=== PATIENT | male | born 1980 | race Caucasian/White ===

== ENCOUNTER 2016-08-16 18:45 | Emergency (ER) | payer OTHER ==
[~2016-08-16] VITALS: Ht 180.3 cm; Wt 128.4 kg
[~2016-08-16 18:45] MED LIST: KLN1X PO; LMC/150 PO; OXYC1TAB3 PO
[2016-08-16 18:51] VITALS: TEMP 36.5; Ht 180.3 cm; Wt 128.4 kg
[2016-08-16] MEDS ORDERED: KETOROLAC TROMETHAMINE 30 MG/ML VIAL IV STA (19:47)
[2016-08-16] MEDS ORDERED: SODIUM CHLORIDE 0.9% 1000ML 1,000 ML IV STA (19:47)
[2016-08-16] MEDS ORDERED: ONDANSETRON INJ 2 MG/ML 2 ML VIAL IV STA (19:47)
[2016-08-16] MEDS ORDERED: SODIUM CHLORIDE 0.9% 1000ML 1,000 ML IV ONE (19:47)
--- NOTE | 2016-08-16 20:22 | EMERGENCY ROOM VISIT NOTE ---
History Report prepared by Sara: Cayla Lama Under the Supervision of: Dr. Konstantin Gonzalez M.D. First contact with patient: 19:38 Chief Complaint: ABDOMINAL PAIN Stated Complaint: STOMACH PROBLEMS Nursing Triage Summary: Patient states "something is really wrong with my stomach, I can't eat and when I do I can't keep it down, I have really bad diarrhea" Symptoms are intermittent and has occured for a couple months. Mid abd pain. Associated acid reflux History of Present Illness The patient is a 35 year old male who presents to the Emergency Room with complaints of persistent nausea and vomiting starting a few days ago. He has had 4 vomiting episodes today. He also reports generalized abdominal pain and diarrhea. He has had a loss of appetite. He reports similar symptoms in the past but notes that the severity of his symptoms today is worse than normal. He also complains of a headache which was relieved with Aleve. He denies any recent ill contacts, changes in medications, unusual foods, or travels. The patient denies any fevers, urinary symptoms or any other complaints. He denies any history of abdominal surgeries. Source of History: patient Onset: a few days ago Position: other (global) Quality: other (nausea and vomiting) Timing: other (persistent) Associated Symptoms: + abdominal pain, + diarrhea, + vomiting, No fevers Review of Systems See HPI for pertinent positives & negatives. A total of 10 systems reviewed and were otherwise negative. Past Medical & Surgical Medical Problems: (1) Anxiety State Nos (2) Attn Deficit W Hyperact (3) Bipolar Disorder, Unspecified (4) Calculus Of Ureter (5) Cannabis Abuse-Unspec (6) Cocaine abuse, unspecified (7) Depressive Disorder Nec (8) Opioid Abuse-Unspec (9) Suicidal Ideation (10) Tobacco Use Disorder Old medical records were reviewed. Nurse's notes were reviewed and I agree with. Family History No pertinent family history Social History Smoking Status: Current Every Day Smoker Alcohol Use: none Drug Use: none Marital Status: in relationship Housing Status: lives alone Occupation Status: unemployed Current/Historical Medications Scheduled Lamotrigine (Lamictal), 150 MG PO BID Ondasetron Odt (Zofran Odt), 4 MG SL Q6H Scheduled PRN Clonazepam (Clonazepam), 1 MG PO TID PRN for Anxiety Zolpidem Tartrate (Ambien), 10 MG PO HS PRN for Sleep Allergies Coded Allergies: Acetaminophen (Unverified Allergy, Mild, 08/16/16) Physical Exam Vital Signs Date Time Temp Pulse Resp B/P Pulse Ox O2 Delivery O2 Flow Rate FiO2 08/16/16 21:24 99 18 134/91 99 Room Air 08/16/16 18:51 36.5 105 19 148/92 98 Room Air Physical Exam General: Non-ill appearing, young male, in no acute distress. HEENT: Normal cephalic atraumatic. Pupils are equal round and reactive to light. Extraocular movements are intact. Oropharynx is pink with moist mucous membranes. No swelling of the mouth lips or tongue. Neck: Supple with a midline trachea. No meningeal signs or stiffness, no JVD or bruits. No Stridor. Chest: Clear to auscultation bilaterally. No wheezes or rhonchi. No increased work of breathing. Heart: regular rate and rhythm. Abdomen: Soft nontender, nondistended without rebound guarding or rigidity. Extremities: No cyanosis clubbing or edema. No calf tenderness or assymetry Spine/Back. Non tender to palpation. No CVA tenderness Skin: Good turgor without rashes. Neurologic exam: Cranial nerves two through 12 are intact. Motor and sensation are intact and symmetrical throughout. Medical Decision & Procedures Laboratory Results 08/16/16 20:05 Red Blood Count 4.91, Mean Corpuscular Volume 94.3, Mean Corpuscular Hemoglobin 32.4, Mean Corpuscular Hemoglobin Concent 34.3, Mean Platelet Volume 10.3, Neutrophils (%) (Auto) 72.1, Lymphocytes (%) (Auto) 15.0, Monocytes (%) (Auto) 9.2, Eosinophils (%) (Auto) 3.1, Basophils (%) (Auto) 0.3, Neutrophils # (Auto) 5.33, Lymphocytes # (Auto) 1.11, Monocytes # (Auto) 0.68, Eosinophils # (Auto) 0.23, Basophils # (Auto) 0.02 08/16/16 20:05 Test 08/16/16 20:05 08/16/16 21:10 White Blood Count 7.39 K/uL (4.8-10.8) Red Blood Count 4.91 M/uL (4.7-6.1) Hemoglobin 15.9 g/dL (14.0-18.0) Hematocrit 46.3 % (42-52) Mean Corpuscular Volume 94.3 fL (80-100) Mean Corpuscular Hemoglobin 32.4 pg (25-34) Mean Corpuscular Hemoglobin Concent 34.3 g/dl (32-36) Platelet Count 297 K/uL (130-400) Mean Platelet Volume 10.3 fL (7.4-10.4) Neutrophils (%) (Auto) 72.1 % Lymphocytes (%) (Auto) 15.0 % Monocytes (%) (Auto) 9.2 % Eosinophils (%) (Auto) 3.1 % Basophils (%) (Auto) 0.3 % Neutrophils # (Auto) 5.33 K/uL (1.4-6.5) Lymphocytes # (Auto) 1.11 K/uL (1.2-3.4) Monocytes # (Auto) 0.68 K/uL (0.11-0.59) Eosinophils # (Auto) 0.23 K/uL (0-0.5) Basophils # (Auto) 0.02 K/uL (0-0.2) RDW Standard Deviation 54.9 fL (36.4-46.3) RDW Coefficient of Variation 15.7 % (11.5-14.5) Immature Granulocyte % (Auto) 0.3 % Immature Granulocyte # (Auto) 0.02 K/uL (0.00-0.02) Anion Gap 10.0 mmol/L (3-11) Est Creatinine Clear Calc Drug Dose 143.4 ml/min Estimated GFR () 114.1 Estimated GFR (Non- 98.5 BUN/Creatinine Ratio 5.7 (10-20) Calcium Level 9.1 mg/dl (8.5-10.1) Total Bilirubin 0.6 mg/dl (0.2-1) Direct Bilirubin 0.2 mg/dl (0-0.2) Aspartate Amino Transf (AST/SGOT) 160 U/L (15-37) Alanine Aminotransferase (ALT/SGPT) 282 U/L (12-78) Alkaline Phosphatase 117 U/L (45-117) Total Protein 7.6 gm/dl (6.4-8.2) Albumin 4.1 gm/dl (3.4-5.0) Lipase 63 U/L (73-393) Urine Color DK YELLOW Urine Appearance CLOUDY (CLEAR) Urine pH 5.5 (4.5-7.5) Urine Specific [place] 1.021 (1.000-1.030) Urine Protein NEG (NEG) Urine Glucose (UA) NEG (NEG) Urine Ketones TRACE (NEG) Urine Occult Blood NEG (NEG) Urine Nitrite NEG (NEG) Urine Bilirubin NEG (NEG) Urine Urobilinogen NEG (NEG) Urine Leukocyte Esterase NEG (NEG) Urine WBC (Auto) 1-5 /hpf (0-5) Urine RBC (Auto) 0-4 /hpf (0-4) Urine Hyaline Casts (Auto) /lpf (0-5) Urine Epithelial Cells (Auto) >30 /lpf (0-5) Urine Bacteria (Auto) NEG (NEG) Urine Renal Epithelial Cells 0-5 /lpf (0-5) Urine Pathogenic Casts /lpf (0) Urine Mucus PRESENT (NONE PRSENT) Laboratory studies as stated above per my review. Medications Administered Medications (Trade) Dose Ordered Sig/Janet Route Start Time Stop Time Status Last Admin Dose Admin Sodium Chloride 1,000 ml @ 999 mls/hr Q1H1M STAT IV 08/16/16 19:47 08/16/16 20:47 DC 08/16/16 20:13 999 MLS/HR Sodium Chloride (Nss 1000ml) 1,000 ml @ 200 mls/hr Q5H ONCE IV 08/16/16 19:47 08/16/16 22:09 DC 08/16/16 19:47 200 MLS/HR Ondansetron HCl (Zofran Inj) 4 mg NOW STAT IV 08/16/16 19:47 08/16/16 19:48 DC 08/16/16 20:13 4 MG Ketorolac Tromethamine (Toradol Inj) 30 mg NOW STAT IV 08/16/16 19:47 08/16/16 19:48 DC 08/16/16 20:13 30 MG ED Course 1937: Past medical records reviewed. The patient was evaluated in room C01B, and a complete history and physical examination were performed. 1946: Toradol Inj 30 mg IV, Zofran Inj 4 mg IV, Sodium Chloride 1000 ml @ 200 mls/hr IV, Sodium Chloride 1000 ml @ 999 mls/hr IV 2039: Upon reevaluation, the patient is resting comfortably. I discussed the results and treatment plan with him. He verbalized agreement of the treatment plan. The patient was discharged home. Medical Decision Differential diagnosis includes but is not limited to dehydration, electrolyte or metabolic abnormality, infection. This patient comes in as described above. He was placed in room C1. He is here for treatment and evaluation of nausea, vomiting, and diarrhea. He appears in minimal abdominal discomfort at present. His abdomen is nontender and he has no peritonitis. IV access established was hydrated with 2 L normal saline lives here in the ER and received Zofran 4 mg IV and Toradol 30 mg IV and was doing much better. He has no white count or fever to suggest infection. He has no electrolyte or metabolic abnormalities. His LFTs are minimally elevated and I think he likely has gallbladder or liver disease. He is feeling better and would like to go home. I will have him rest and drink plenty of fluids. At this point has nothing to suggest a surgical process or appendicitis or bacterial infection. He was encouraged use Zofran if needed for nausea vomiting. Return if increasing pain, worsening of symptoms, fever chills, any new problems concerns and follow up with his regular doctor in 1-2 days for recheck. He was happy with the plan and discharged to home. Impression Primary Impression: Nausea vomiting and diarrhea Additional Impression: Dehydration Scribe Attestation The scribe's documentation has been prepared under my direction and personally reviewed by me in its entirety. I confirm that the note above accurately reflects all work, treatment, procedures, and medical decision making performed by me. Departure Information Dispostion Home / Self-Care Prescriptions Ondasetron Odt (ZOFRAN ODT) 4 Mg Tab 4 MG SL Q6H for Nausea, #15 TAB Prov: Konstantin Gonzalez M.D. 08/16/16 Referrals No Doctor, Assigned (PCP) Forms Call Back Authorization, HOME CARE DOCUMENTATION FORM, IMPORTANT VISIT INFORMATION, My [facility] Patient Instructions A Signature Page Additional Instructions Rest. Drink plenty of fluids. Slowly advance your diet Use Zofran 4 mg under the tongue every 6 hours if needed for nausea or vomiting Return if: Increasing pain, worsening of symptoms, fever or chills, any new problems or concerns. Follow-up with your doctor in 1-2 days for recheck
[2016-08-16] MEDS ORDERED: ZOLP10TA PO (20:23)
[2016-08-16 20:39] LABS: BUN/CREATININE RATIO 5.7 (10-20); CALCIUM 9.1 mg/dl (8.5-10.1); POTASSIUM 3.9 mmol/L (3.5-5.1)
[2016-08-16 20:57] LABS: BASO % 0.3 %; BASO ABS # 0.02 K/uL (0-0.2); COMPLETE YES; EOS % 3.1 %; HEMATOCRIT 46.3 % (42-52); IG% 0.3 %; LYMPH ABS # 1.11 K/uL (1.2-3.4); MEAN CELL VOLUME 94.3 fL (80-100); MEAN CORPUSCULAR HEMOGLOBIN 32.4 pg (25-34); MEAN CORPUSCULAR HGB CONC 34.3 g/dl (32-36); MEAN PLATELET VOLUME 10.3 fL (7.4-10.4); MONO % 9.2 %; NEUT % 72.1 %; PLATELET COUNT 297 K/uL (130-400); RED BLOOD COUNT 4.91 M/uL (4.7-6.1); WHITE BLOOD COUNT 7.39 K/uL (4.8-10.8)
[2016-08-16 21:24] VITALS: BP 134/91; PULSE 99; O2SAT 99
[2016-08-16] MEDS ORDERED: ONDA4TAB10 SL (21:37)
[2016-08-16 21:43] LABS: URINE APPEARANCE CLOUDY (CLEAR); URINE COLOR DK YELLOW; URINE EPITHELIAL CELL AUTO >30 /lpf (0-5); URINE NITRITE NEG (NEG); URINE PH 5.5 (4.5-7.5); URINE SPECIFIC GRAVITY 1.021 (1.000-1.030); UROBILINOGEN NEG (NEG)
[2016-08-16] MEDS ORDERED: ONDANSETRON HOME PACK 4MG OD TAB PO ONE (21:45)
[2016-08-16 21:48] LABS: MANUAL MICROSCOPIC REQUIRED? NO; REVIEW REQ? YES; URINE BILIRUBIN NEG (NEG)
[2016-08-16 21:57] LABS: URINE MUCUS PRESENT (NONE PRSENT)
== END 2016-08-16 21:48 | disposition home or self-care (01) ==
LOC: C.EDB 18:47 → C.EDC 21:48
DX: R11.2 Nausea with vomiting, unspecified (principal); E86.0 Dehydration; R19.7 Diarrhea, unspecified; F90.9 Attention-deficit hyperactivity disorder, unspecified type; F31.9 Bipolar disorder, unspecified; F17.210 Nicotine dependence, cigarettes, uncomplicated

== ENCOUNTER 2016-09-13 00:29 | Emergency (ER) | payer OTHER ==
[~2016-09-13] VITALS: Ht 180.3 cm; Wt 126.3 kg
[~2016-09-13 00:29] MED LIST changes: +ONDA4TAB10 SL; -OXYC1TAB3 PO; +ZOLP10TA PO
[2016-09-13 00:45] VITALS: TEMP 36.7; Ht 180.3 cm; Wt 126.3 kg
[2016-09-13] MEDS ORDERED: LORAZEPAM 2 MG/ML 1 ML VIAL IV STA (01:12)
[2016-09-13] MEDS ORDERED: SODIUM CHLORIDE 0.9% 500ML 500 ML IV STA (01:12)
--- NOTE | 2016-09-13 01:20 | EMERGENCY ROOM VISIT NOTE ---
History Report prepared by Sara: Mandeep Jefferson Under the Supervision of: Dr. Imelda Chase D.O. First contact with patient: 00:41 Chief Complaint: MENTAL HEALTH EVALUATION Stated Complaint: EVALUATION FOR 3 SOUTH History of Present Illness The patient is a 36 year old male who presents to the Emergency Room with complaints of a mental health issue starting a few weeks ago. The patient states that he has a history of anxiety and substance abuse, and he takes medications to help the anxiety. The patient states that a few weeks ago his Doctor decreased his dosage of Klonopin which he has taken for three years from 1mg three times a day to 1mg two times a day. The patient states that a week after he has decreased his dosage he has started drinking about 4-5 16oz bottles of 8% alcohol every day. He states that the last time that he drank was a few hours ago. The patient states that he wants to go into rehab, and he has been into rehab before, however it was not helpful due to being too large. The patient states that he lives with his girlfriend, however are currently . He states that he is employed, however is on a leave of absence. He additionally states that he occasionally smokes marijuana and has smoked about one gram this week. The patient states that the last dosage of Klonopin was this morning. The patient states that he additionally takes, Ritalin, Ambien, and Lamictal. The patient denies any thoughts of hurting himself, and he states that he has some diarrhea due to the drinking. Source of History: patient Onset: a few weeks ago Position: other (global) Quality: other (mental health) Associated Symptoms: + diarrhea Review of Systems See HPI for pertinent positives & negatives. A total of 10 systems reviewed and were otherwise negative. Past Medical & Surgical Medical Problems: (1) Anxiety State Nos (2) Attn Deficit W Hyperact (3) Bipolar Disorder, Unspecified (4) Calculus Of Ureter (5) Cannabis Abuse-Unspec (6) Cocaine abuse, unspecified (7) Depressive Disorder Nec (8) Opioid Abuse-Unspec (9) Suicidal Ideation (10) Tobacco Use Disorder Family History No pertinent family history Social History Smoking Status: Current Every Day Smoker Alcohol Use: none Drug Use: none Marital Status: in relationship Housing Status: lives alone Occupation Status: unemployed Current/Historical Medications Scheduled Clonazepam (Clonazepam), 1 MG PO BID Lamotrigine (Lamictal), 150 MG PO BID Methylphenidate (Ritalin), 10 MG PO TID Scheduled PRN Zolpidem Tartrate (Ambien), 10 MG PO HS PRN for Sleep Allergies Coded Allergies: Acetaminophen (Unverified Allergy, Mild, 09/13/16) Physical Exam Vital Signs Date Time Temp Pulse Resp B/P Pulse Ox O2 Delivery O2 Flow Rate FiO2 09/13/16 03:28 101 21 150/87 95 09/13/16 01:50 101 25 150/87 95 Room Air 09/13/16 00:47 113 09/13/16 00:45 36.7 108 25 165/123 97 Room Air Physical Exam General: He is hyperverbal and anxious HEENT: Head - normocephalic and atraumatic Pupils are equal, round, and reactive to light. Extraocular eye muscles are intact, and sclera are anicteric. Nose - moist nasal mucosa without discharge. Mouth - moist buccal mucosa. Oropharynx is nonerythematous and there is no tonsillar exudate or edema noted. Neck: Supple; no JVD, nuchal rigidity, cervical lymphadenopathy. Heart: Tachycardic rate and regular rhythm. There is a normal S1 and S2 with no murmurs, clicks, or gallops appreciated. Lungs: Clear to auscultation bilaterally with no wheezes, rales, or rhonchi. Abdomen: Soft, completely nontender, nondistended, with good bowel sounds. There are no palpable pulsatile masses or hepatosplenomegaly. There is no guarding, rigidity, or rebound noted. Extremities: There is trace pedal edema in the legs. No evidence of cyanosis or clubbing. There are easily palpable peripheral pulses. Skin: warm and diaphoretic with good turgor and no rashes. Psych: The patient denies any suicidal or homicidal ideation. He does admit to suffering from increased anxiety as a result of decreasing his Klonopin dose. Medical Decision & Procedures Laboratory Results 09/13/16 01:30 09/13/16 01:30 Test 09/13/16 01:30 09/13/16 01:50 Red Blood Count 4.86 M/uL (4.7-6.1) Mean Corpuscular Volume 94.9 fL (80-100) Mean Corpuscular Hemoglobin 32.9 pg (25-34) Mean Corpuscular Hemoglobin Concent 34.7 g/dl (32-36) RDW Standard Deviation 52.8 fL (36.4-46.3) RDW Coefficient of Variation 15.2 % (11.5-14.5) Mean Platelet Volume 10.0 fL (7.4-10.4) Anion Gap 15.0 mmol/L (3-11) Est Creatinine Clear Calc Drug Dose 176.1 ml/min Estimated GFR () 135.1 Estimated GFR (Non- 116.6 BUN/Creatinine Ratio 5.9 (10-20) Calcium Level 8.4 mg/dl (8.5-10.1) Total Bilirubin 0.3 mg/dl (0.2-1) Direct Bilirubin < 0.1 mg/dl (0-0.2) Aspartate Amino Transf (AST/SGOT) 88 U/L (15-37) Alanine Aminotransferase (ALT/SGPT) 105 U/L (12-78) Alkaline Phosphatase 92 U/L (45-117) Total Protein 6.9 gm/dl (6.4-8.2) Albumin 4.0 gm/dl (3.4-5.0) Thyroid Stimulating Hormone (TSH) 2.280 uIu/ml (0.300-4.500) Salicylates Level 2.0 mg/dl (2.8-20) Acetaminophen Level < 2 ug/ml (10-30) Ethyl Alcohol mg/dL 140.0 mg/dl (0-3) Urine Color YELLOW Urine Appearance CLEAR (CLEAR) Urine pH 5.5 (4.5-7.5) Urine Specific [place] 1.005 (1.000-1.030) Urine Protein NEG (NEG) Urine Glucose (UA) NEG (NEG) Urine Ketones NEG (NEG) Urine Occult Blood NEG (NEG) Urine Nitrite NEG (NEG) Urine Bilirubin NEG (NEG) Urine Urobilinogen NEG (NEG) Urine Leukocyte Esterase NEG (NEG) Urine Opiates Screen NEG (NEG) Urine Methadone, Qualitative NEG (NEG) Urine Barbiturates NEG (NEG) Urine Phencyclidine (PCP) Level NEG (NEG) Ur Amphetamine/Methamphetamine NEG (NEG) MDMA (Ecstasy) Screen NEG (NEG) Urine Benzodiazepines Screen NEG (NEG) Urine Cocaine Metabolite NEG (NEG) Urine Marijuana (THC) NEG (NEG) Laboratory results per my review. Medications Administered Medications (Trade) Dose Ordered Sig/Janet Route Start Time Stop Time Status Last Admin Dose Admin Sodium Chloride (Nss 500ml) 500 ml @ 999 mls/hr Q31M STAT IV 09/13/16 01:12 09/13/16 01:42 DC 09/13/16 01:49 999 MLS/HR Lorazepam (Ativan Inj) 1 mg NOW STAT IV 09/13/16 01:12 09/13/16 01:13 DC 09/13/16 01:49 1 MG Procedure Ativan, Sodium Chloride ED Course 0059: Past medical records reviewed. The patient was evaluated in room A9. A complete history and physical exam was performed. An IV lock was initiated and labs were drawn as above. The patient was also evaluated at that time by the manager diversity. 0112: Ativan Inj 1mg IV, Sodium Chloride 500 ml @ 999 mls/hr IV. 0243: I reevaluated the patient at this time. He was sound asleep. His vital signs were stable. I woke him to review the results of his laboratory studies. I explained to the patient that I did not have any criteria to admit him into a psychiatric facility but that I certainly concurred with his attempts at entering a substance abuse rehabilitation facility. We spent a great deal of time talking about that process. He has previously been admitted to [facility] and does not want to go back to such a large facility. He explained that Mani at the [facility] had made arrangements for him to be excepted into a smaller program but they were unable to arrange transportation. The patient voiced concerns about consuming more alcohol after discharge. I recommended that he increase his Klonopin dose back to 3 mg per day which he had been taking for many years without any alcohol consumption. He agreed that he had enough Klonopin tablets to do this. I recommended that this will only be for a short period of Time until he could be excepted into a inpatient rehabilitation program. I suggested that the patient will be discharged home to follow-up with the [facility] drug [facility] alcohol program to pursue inpatient admission for rehabilitation. I suggested that our ED pillowcase turner could also contact Mani at the [facility] to assist with facilitating his admission to one of these programs. The patient seemed to be satisfied with this plan. Our manager diversity went to the room to discuss this follow-up plan and to arrange for transportation home when the patient became quite angry stating that he had called into the emergency department earlier in the evening and was told that he would be admitted to a psychiatric facility. She explained to the patient that he did not meet any criteria for inpatient psychiatric care and that he will be best served at a drug and alcohol program. The patient requested to be discharged immediately so that he could walk home. 0306: I reevaluated the patient as he was requesting to be discharged immediately. I explained to the patient that he could not walk home as he is under the influence of alcohol and had received IV benzodiazepines here in the emergency department. The patient states that he has no money for a taxi, rubor or to ride the bus. We were able to provide him with a taxi voucher. Again, I had a lengthy discussion with the patient about his outpatient plans. He agreed that he would follow up with Mani this morning. Our ED pillowcase turner will also contact the [facility] drug and alcohol program. I recommended that he not drink any alcohol. I recommended that he take 1 mg of Klonopin every 8 hours. The patient was told region to the emergency department if he felt worsening symptoms or suicidal thoughts at any time. Medical Decision The patient is a 36 year old male who presents to the ED with anxiety and alcohol intoxication. Differential diagnosis is includes benzodiazepine withdrawal, alcohol intoxication, alcohol withdrawal, and anxiety attack. Normal white blood cell count, stable H&H, normal renal function and TSH, glucose of 93, AST 88, ALT 105, alcohol 140, salicylate and Tylenol levels negative, urine tox screen negative, urinalysis was normal The patient presents to the emergency department describing a 2 week history of increased anxiety and alcohol abuse as a result of his psychiatrist decreasing his dose of Klonopin. The patient has tried to arrange for substance abuse treatment on an outpatient basis through [facility] drug and alcohol. He presented here to the emergency department believing that we could facilitate acceptance into a drug and alcohol program quicker than on an outpatient basis. The patient was quite anxious but denies any suicidal or homicidal ideation. He presents acutely intoxicated and also possibly withdrawing from benzodiazepines as he only took one dose more than 12 hours ago. The patient was hemodynamic here in the emergency department. We will follow through with outpatient substance abuse treatment as described above. Impression Primary Impression: Alcohol intoxication Additional Impression: Benzodiazepine withdrawal Scribe Attestation The scribe's documentation has been prepared under my direction and personally reviewed by me in its entirety. I confirm that the note above accurately reflects all work, treatment, procedures, and medical decision making performed by me. Departure Information Dispostion Home / Self-Care Referrals No Doctor, Assigned (PCP) Forms HOME CARE DOCUMENTATION FORM, IMPORTANT VISIT INFORMATION Patient Instructions ED Alcohol Intoxication, My [facility] Additional Instructions Do not drink alcohol take klonopin every 8 hours til admitted to a rehab. contact [facility] drug [facility] alcohol (Mani) after 8 am. Our ED pillowcase turner will also contact them to facilitate getting you to a rehab. Problem Qualifiers
[2016-09-13] MEDS ORDERED: METH10TA4 PO (01:38)
[2016-09-13 01:48] LABS: HEMATOCRIT 46.1 % (42-52); MEAN CELL VOLUME 94.9 fL (80-100); MEAN CORPUSCULAR HEMOGLOBIN 32.9 pg (25-34); MEAN CORPUSCULAR HGB CONC 34.7 g/dl (32-36); PLATELET COUNT 318 K/uL (130-400); RED BLOOD COUNT 4.86 M/uL (4.7-6.1); WHITE BLOOD COUNT 6.99 K/uL (4.8-10.8)
[2016-09-13 01:58] LABS: URINE APPEARANCE CLEAR (CLEAR); URINE BILIRUBIN NEG (NEG); URINE COLOR YELLOW; URINE NITRITE NEG (NEG); URINE PH 5.5 (4.5-7.5); URINE SPECIFIC GRAVITY 1.005 (1.000-1.030); UROBILINOGEN NEG (NEG)
[2016-09-13 02:01] LABS: MANUAL MICROSCOPIC REQUIRED? NO; REVIEW REQ? NO
[2016-09-13 02:07] LABS: ALT/SGPT 105 U/L (12-78); AST/SGOT 88 U/L (15-37); BLOOD UREA NITROGEN 5 mg/dl (7-18); BUN/CREATININE RATIO 5.9 (10-20); CALCIUM 8.4 mg/dl (8.5-10.1); CARBON DIOXIDE 21 mmol/L (21-32); CHLORIDE 107 mmol/L (98-107); GLUCOSE 93 mg/dl (70-99); POTASSIUM 3.4 mmol/L (3.5-5.1); SODIUM 143 mmol/L (136-145)
[2016-09-13 02:17] LABS: ACETAMINOPHEN < 2 ug/ml (10-30)
[2016-09-13 02:18] LABS: ALKALINE PHOSPHATASE 92 U/L (45-117)
[2016-09-13 02:19] LABS: BENZODIAZEPINE, URINE NEG (NEG); COCAINE,URINE NEG (NEG); PHENCYCLIDINE, URINE NEG (NEG)
[2016-09-13 03:28] VITALS: BP 150/87; PULSE 101; O2SAT 95
== END 2016-09-13 03:32 | disposition home or self-care (01) ==
LOC: C.EDB 00:30 → C.EDA 03:32
DX: F10.129 Alcohol abuse with intoxication, unspecified (principal); F19.20 Other psychoactive substance dependence, uncomplicated; F41.9 Anxiety disorder, unspecified; F31.9 Bipolar disorder, unspecified; F90.9 Attention-deficit hyperactivity disorder, unspecified type; F17.200 Nicotine dependence, unspecified, uncomplicated; Z87.442 Personal history of urinary calculi; Z79.899 Other long term (current) drug therapy; Z88.6 Allergy status to analgesic agent

== ENCOUNTER 2016-12-17 14:19 | Emergency (ER) | payer OTHER ==
[~2016-12-17] VITALS: Ht 180.3 cm; Wt 125.9 kg
[~2016-12-17 14:19] MED LIST changes: +METH10TA4 PO; -ONDA4TAB10 SL
[2016-12-17 14:22] VITALS: TEMP 36.6; Ht 180.3 cm; Wt 125.9 kg
[2016-12-17] MEDS ORDERED: NRN/300 PO (14:38)
[2016-12-17 15:22] LABS: URINE APPEARANCE CLEAR (CLEAR); URINE BILIRUBIN NEG (NEG); URINE COLOR YELLOW; URINE NITRITE NEG (NEG); URINE SPECIFIC GRAVITY 1.017 (1.000-1.030); UROBILINOGEN NEG (NEG); ZZUR CULT IF INDIC CLEAN CATCH NO
[2016-12-17 15:23] LABS: MANUAL MICROSCOPIC REQUIRED? NO; REVIEW REQ? NO
[2016-12-17 15:51] LABS: BENZODIAZEPINE, URINE NEG (NEG); COCAINE,URINE NEG (NEG); PHENCYCLIDINE, URINE NEG (NEG)
[2016-12-17] MEDS ORDERED: CLONAZEPAM 1 MG TAB PO STA (16:25)
[2016-12-17 16:48] VITALS: BP 169/105; PULSE 99; O2SAT 97
--- NOTE | 2016-12-17 18:24 | EMERGENCY ROOM VISIT NOTE ---
History Report prepared by Sara: Chuckie Guillermo Under the Supervision of: Dr. Jarad Joaquin M.D. First contact with patient: 15:11 Chief Complaint: MENTAL HEALTH EVALUATION Stated Complaint: DEPRESSION History of Present Illness The patient is a 36 year old male who presents to the Emergency Room with complaints of worsening anxiety beginning about a month ago. He states that he has been on Klonopin since 2001, and states that his psychiatrist took him, as well all of his other patients, off of Klonopin about a month ago. He states that he has been on many different psychiatric medications, but Klonopin is the only medication that has worked for him. The patient states that his life has not been going well since he was taken off of Klonopin. He states that he lost his girlfriend and his job and is now "basically homeless". He notes that he has a new girlfriend now and things are starting to look better. The patient states that he has been having problems with paranoia, and bad dreams. He states that he has had thoughts of harming himself in his dreams at night, but does not think about it at all when awake, and denies any desire to harm himself. The patient has a history of bipolar disorder, ADD, and anxiety. He states that he has been hospitalized multiple times for anxiety in the past. He denies any fevers, or vomiting. Source of History: patient Onset: about a month ago Position: other (global) Quality: other (anxiety) Timing: worsening Modifying Factors (Relieving): other (Klonopin ) Associated Symptoms: No fevers, No vomiting Note: The patient complains of paranoia and bad dreams. Review of Systems See HPI for pertinent positives & negatives. A total of 10 systems reviewed and were otherwise negative. Past Medical & Surgical Medical Problems: (1) Anxiety State Nos (2) Attn Deficit W Hyperact (3) Bipolar Disorder, Unspecified (4) Calculus Of Ureter (5) Cannabis Abuse-Unspec (6) Cocaine abuse, unspecified (7) Depressive Disorder Nec (8) Opioid Abuse-Unspec (9) Suicidal Ideation (10) Tobacco Use Disorder Family History No pertinent family history Social History Smoking Status: Current Every Day Smoker Alcohol Use: none Drug Use: none Marital Status: in relationship Housing Status: lives alone Occupation Status: unemployed Current/Historical Medications Scheduled Gabapentin (Neurontin), 300 MG PO TID Lamotrigine (Lamictal), 150 MG PO BID Zolpidem Tartrate (Ambien), 10 MG PO HS Scheduled PRN Methylphenidate (Ritalin), 10 MG PO TID PRN for prn Allergies Coded Allergies: Acetaminophen (Unverified Allergy, Mild, 12/17/16) Physical Exam Vital Signs Date Time Temp Pulse Resp B/P Pulse Ox O2 Delivery O2 Flow Rate FiO2 12/17/16 16:48 99 20 169/105 97 12/17/16 14:27 162/103 12/17/16 14:22 36.6 116 20 209/145 97 Room Air Physical Exam Constitutional: Vital signs reviewed. Eyes: Pupils are equal round reactive to light. Conjunctiva are noninjected. ENT: Pharynx is clear without erythema or exudate. Mucous membranes are moist. Neck supple without meningeal signs. Respiratory: Clear to auscultation bilaterally. Breath sounds are equal bilaterally. Cardiovascular: Regular rate and rhythm. No rubs or gallops. GI: Soft, nondistended and nontender. Bowel sounds are present. Musculoskeletal: No peripheral edema. No lower extremity tenderness. Integumentary: No cyanosis. Neurological: The patient is awake and alert. No focal deficits. Psychiatric: Very anxious and restless. Medical Decision & Procedures Laboratory Results Test 12/17/16 00:00 Urine Color YELLOW Urine Appearance CLEAR (CLEAR) Urine pH 5.0 (4.5-7.5) Urine Specific Caret 1.017 (1.000-1.030) Urine Protein NEG (NEG) Urine Glucose (UA) NEG (NEG) Urine Ketones NEG (NEG) Urine Occult Blood NEG (NEG) Urine Nitrite NEG (NEG) Urine Bilirubin NEG (NEG) Urine Urobilinogen NEG (NEG) Urine Leukocyte Esterase NEG (NEG) Urine Opiates Screen NEG (NEG) Urine Methadone, Qualitative NEG (NEG) Urine Barbiturates NEG (NEG) Urine Phencyclidine (PCP) Level NEG (NEG) Ur Amphetamine/Methamphetamine NEG (NEG) MDMA (Ecstasy) Screen NEG (NEG) Urine Benzodiazepines Screen NEG (NEG) Urine Cocaine Metabolite NEG (NEG) Urine Marijuana (THC) NEG (NEG) Laboratory results as reviewed by me. Medications Administered Medications (Trade) Dose Ordered Sig/Janet Route Start Time Stop Time Status Last Admin Dose Admin Clonazepam (Klonopin Tab) 1 mg ONE STAT PO 12/17/16 16:25 12/17/16 16:26 DC 12/17/16 16:39 1 MG ED Course 1513: The patient was evaluated in room A8. A complete history and physical exam was performed. 1623: The mental health nurse case manager met with the patient. The patient does not require or meet criteria for inpatient treatment. He will be given Klonopin and discharged with outpatient follow-up. 1625: Ordered Klonopin Tab 1 mg PO. 1640: Upon reevaluation, the patient appeared to have improvement of his symptoms. I discussed tonight's findings with him. He verbalized agreement of the treatment plan. The patient was discharged home. Medical Decision This is a 36-year-old male who presents with anxiety. I did perform a limited focused review of portions of the patient's old chart on the electronic medical record. The patient was seen in the emergency department for a mental health evaluation on September 13. He had increased anxiety because his doctor decreased his Klonopin. He was discharged for outpatient treatment. I did evaluate the patient as noted above. I did evaluate the patient as noted above. He is presenting with significant anxiety. He is requesting Klonopin as he states this is really nothing that works for him. I did give him a dose of Klonopin here. The mental health recycling worker did evaluate the patient. She did not feel the patient met criteria for inpatient treatment. She did recommend he follow up with his psychiatrist for further care and evaluation. I did discharge the patient. Impression Primary Impression: Acute anxiety Scribe Attestation The scribe's documentation has been prepared under my direct and personally reviewed by me in its entirety. I confirm that the note above accurately reflects all work, treatment, procedures, and medical decision making performed by me. Departure Information Dispostion Home / Self-Care Referrals Bulmaro Swanson III, CRNP (PCP) Forms HOME CARE DOCUMENTATION FORM, IMPORTANT VISIT INFORMATION Patient Instructions Anxiety Disorder, My [facility] Additional Instructions You have been examined and treated today on an emergency basis only. This is not a substitute for, or an effort to provide, complete comprehensive medical care. It is impossible to recognize and treat all injuries or illnesses in a single emergency department visit. It is therefore important that you follow up closely with your physician and psychiatrist. Call as soon as possible for an appointment. Return for worsening symptoms or if you develop thoughts of hurting yourself or others or any other concerning symptoms.
== END 2016-12-17 16:48 | disposition home or self-care (01) ==
LOC: C.EDB 14:20 → C.EDA 16:48
DX: F41.9 Anxiety disorder, unspecified (principal); F31.9 Bipolar disorder, unspecified; F90.9 Attention-deficit hyperactivity disorder, unspecified type; F17.200 Nicotine dependence, unspecified, uncomplicated; Z87.442 Personal history of urinary calculi; Z79.899 Other long term (current) drug therapy; Z88.6 Allergy status to analgesic agent

== ENCOUNTER → 2017-03-08 | Outpatient (CLI) | payer OTHER ==
[~2017-03-08] MED LIST changes: +CLON0.5T3 PO; +GABA1CAP5 PO; -KLN1X PO; +NRN/300 PO
[2017-03-08 17:49] LABS: BENZODIAZEPINE, URINE NEG (NEG); COCAINE,URINE NEG (NEG); PHENCYCLIDINE, URINE NEG (NEG)
== END | disposition home or self-care (01) ==
LOC: C.LABBC 13:57
PROVIDERS: ATTEND Physician Assistant
DX: Z79.899 Other long term (current) drug therapy (principal)

== ENCOUNTER 2017-04-05 12:06 | Emergency (ER) | payer OTHER ==
[~2017-04-05] VITALS: Ht 180.3 cm; Wt 120.0 kg
[~2017-04-05 12:06] MED LIST changes: -CLON0.5T3 PO; -GABA1CAP5 PO
[2017-04-05 12:09] VITALS: Ht 180.3 cm; Wt 120.0 kg
[2017-04-05] MEDS ORDERED: GABA1CAP5 PO (12:33)
[2017-04-05] MEDS ORDERED: CLON0.5T3 PO (12:33)
[2017-04-05] MEDS ORDERED: GABAPENTIN 600 MG TAB PO STA (13:04)
[2017-04-05] MEDS ORDERED: GABAPENTIN 400 MG CAP PO ONE (13:30)
--- NOTE | 2017-04-05 13:37 | EMERGENCY ROOM VISIT NOTE ---
ED Visit Note First contact with patient: 12:50 CHIEF COMPLAINT: Medication refill HISTORY OF PRESENT ILLNESS: This 36-year-old male patient presents to the emergency department for medications. The patient states he ran out of his prescriptions today, and is unable to get them refilled until next week. The patient states his insurance was cut the other day, and it will not become active until next week. The patient states his prescriptions ran out today, but because the insurance is not active at this time, he is unable to afford the medications at the pharmacy. The patient does have refills of his medications waiting for him at the pharmacy. The patient states he gets paid tomorrow, so he should be able to have partial prescriptions filled at that time. The patient states he has out of his Lamictal, gabapentin, and Klonopin. The patient states when he saw his PCP today, they told him there is nothing they could do to help him. The PCP advised him to come to the emergency department for his medications. The patient's last dose of medications was last night. The patient states "I feel like I'm about to have a seizure". Patient states he does not take his medications for seizures, he takes them as mood stabilizers. REVIEW OF SYSTEMS: A 10 system review of systems was performed with positives and pertinent negatives listed in the history of present illness. All other systems were reviewed and are negative. ALLERGIES: None MEDICATIONS: Klonopin, gabapentin, Lamictal, Ambien PMH: And bipolar disorder SOCIAL HISTORY: The patient lives locally with family. He denies drug, alcohol use. The patient admits to smoking approximately one pack of cigarettes per day. PHYSICAL EXAM: VITALS: Vitals are noted on the nurse's note and reviewed by myself. Vital signs stable. GENERAL: This is a 36-year-old white male, in no acute distress, nondiaphoretic , well-developed well-nourished. SKIN: The skin was without rashes, erythema, edema, or bruising. There is no tenting of the skin. Capillary reflex less than 2 seconds. HEAD: Normocephalic atraumatic. EARS: External auditory canals clear, tympanic membranes pearly [place] without erythema or effusion bilaterally. EYES: Pupils equal round and reactive to light and accommodation. Conjunctivae without injection, sclerae without icterus. Extraocular movements intact. NOSE: Patent, turbinates without inflammation or discharge. No sinus tenderness. MOUTH: Mucous membranes moist. Tonsils are not enlarged. Pharynx without erythema or exudate. Uvula midline. Airway patent. Tongue does not deviate. NECK: Supple without nuchal rigidity. No lymphadenopathy. No thyromegaly. Cervical spine is nontender. No JVD. HEART: Regular rate and rhythm without murmurs gallops or rubs. LUNGS: Clear to auscultation bilaterally without wheezes, rales or rhonchi. No dullness to percussion. No retractions or accessory muscle use. MUSCULOSKELETAL: No muscle atrophy, erythema, or edema noted. Full range of motion without joint tenderness in all extremities. No tenderness to palpation. Normal gait. Strength 5/5 throughout. NEURO: Patient was alert and oriented to person place and time. Normal sensation to light and sharp touch. Deep tendon reflexes 2+ throughout. No focal neurological deficits. EMERGENCY DEPARTMENT COURSE: The patient was seen and evaluated as above. I discussed with him that I could give him 1 dose of his medications here in the emergency department today, however he would have to have his prescriptions filled tomorrow or speak with his primary care provider or psychiatrist for ongoing management. I discussed with the patient that we would give him his Lamictal and gabapentin, as these are his regularly scheduled medications, but we would not be giving him his Klonopin, as this is a when necessary medication. The patient was in agreement with this plan. He was given the medications. The patient was discharged home in good condition. DIFFERENTIAL DIAGNOSIS: Seizure, bipolar disorder, medication refills, and others. DIAGNOSIS: Need for medication refill DISCHARGE INSTRUCTIONS & TREATMENT: He was given 1 dose of your regular medications today in the emergency department. We are unable to send you home with more medication, but you should fill your prescriptions as soon as possible at your pharmacy. Please plan ahead in the future so that you do not run out of your medications. Please follow-up with your primary care provider and psychiatrist for further evaluation and management of your chronic diseases. Please return to the emergency department for chest pain, trouble breathing, seizures, syncope, or other concerning symptoms. Current/Historical Medications Scheduled Clonazepam (Klonopin), 0.5 MG PO TID Gabapentin (Neurontin), 400 MG PO TID Lamotrigine (Lamictal), 150 MG PO BID Zolpidem Tartrate (Ambien), 10 MG PO HS Allergies Coded Allergies: No Known Allergies (Unverified , 04/05/17) Vital Signs Date Time Temp Pulse Resp B/P (MAP) Pulse Ox O2 Delivery O2 Flow Rate FiO2 04/05/17 13:47 36.7 79 18 138/97 97 04/05/17 12:09 36.7 95 18 151/99 96 Room Air Medications Administered Medications (Trade) Dose Ordered Sig/Janet Route Start Time Stop Time Status Last Admin Dose Admin Lamotrigine (Lamictal Tab) 150 mg NOW STAT PO 04/05/17 13:04 04/05/17 13:06 DC 04/05/17 13:33 150 MG Gabapentin (Neurontin Cap) 400 mg NOW ONCE PO 04/05/17 13:30 04/05/17 13:31 DC 04/05/17 13:33 400 MG Departure Information Impression Primary Impression: Medication refill Additional Impression: Bipolar disorder Dispostion Home / Self-Care Condition GOOD Referrals No Doctor, Assigned (PCP) Patient Instructions My [facility] Additional Instructions He was given 1 dose of your regular medications today in the emergency department. We are unable to send you home with more medication, but you should fill your prescriptions as soon as possible at your pharmacy. Please plan ahead in the future so that you do not run out of your medications. Please follow-up with your primary care provider and psychiatrist for further evaluation and management of your chronic diseases. Please return to the emergency department for chest pain, trouble breathing, seizures, syncope, or other concerning symptoms. Problem Qualifiers Additional Impression: Bipolar disorder Active/Remission status: remission status unspecified Qualified Codes: F31.9 - Bipolar disorder, unspecified
[2017-04-05 13:47] VITALS: BP 138/97; PULSE 79; TEMP 36.7; O2SAT 97
== END 2017-04-05 13:48 | disposition home or self-care (01) ==
LOC: C.EDB 12:07 → C.EDD 13:48
DX: Z76.0 Encounter for issue of repeat prescription (principal); F31.9 Bipolar disorder, unspecified; Z79.899 Other long term (current) drug therapy; F17.210 Nicotine dependence, cigarettes, uncomplicated